=== PATIENT | male | born 2000 | race American Indian/Alaskan Native ===

== ENCOUNTER 2022-11-23 14:33 | Emergency (ER) | payer MEDICAID ==
[2022-11-23 15:32] LABS: APPEARANCE,URINE SLIGHTLY CLOUDY (CLEAR); BILIRUBIN,URINE SMALL (NEGATIVE); COLOR,URINE YELLOW (YELLOW); GLUCOSE,URINE NEGATIVE (NEGATIVE); KETONES,URINE 40 mg/dL (NEGATIVE); LEUKOCYTE ESTERASE,URINE SMALL (NEGATIVE); NITRITE,URINE NEGATIVE (NEGATIVE); OCCULT BLOOD,URINE TRACE-INTACT (NEGATIVE); PH,URINE 6.5 (5.0-8.0); PROTEIN,URINE 30 mg/dL (NEGATIVE)
[2022-11-23 15:37] LABS: RBC,URINE 0-5 (0-5); WBC,URINE PACKED (0-5)
[2022-11-23 15:38] LABS: AMORPHOUS SEDIMENT,URINE NOT SEEN; BACTERIA,URINE MODERATE; EPITHELIAL CELLS,URINE RARE; MUCUS,URINE PACKED
[2022-11-26 16:17] LABS: CHLAMYDIA TRACHOMATIS, NAA Positive (Negative); NEISSERIA GONORRHOEAE, NAA Positive (Negative)
[2022-11-26 18:18] LABS: T PALLIDUM ANTIBODIES Non Reactive (Non Reactive)
== END 2022-11-23 16:01 | disposition home or self-care (01) ==
LOC: JP.ED 14:33
DX: A64 Unspecified sexually transmitted disease (principal); F17.210 Nicotine dependence, cigarettes, uncomplicated
CPT/HCPCS: 36415; 81001; 86780; 87449; 87491; 87591; 99283

== ENCOUNTER 2022-11-27 19:31 | Emergency (ER) | payer MEDICAID | END 2022-11-27 20:10 | disposition left against medical advice (07) | LOC: JP.ED 19:31 | DX: Z53.21 Procedure and treatment not carried out due to patient leaving prior to being seen by health care provider (principal) ==

== ENCOUNTER 2024-08-04 12:23 | Emergency (ER) | payer MEDICAID ==
[2024-08-04 13:20] LABS: APPEARANCE,URINE CLEAR (CLEAR); BILIRUBIN,URINE NEGATIVE (NEGATIVE); COLOR,URINE YELLOW (YELLOW); GLUCOSE,URINE NEGATIVE (NEGATIVE); KETONES,URINE NEGATIVE (NEGATIVE); LEUKOCYTE ESTERASE,URINE NEGATIVE (NEGATIVE); NITRITE,URINE NEGATIVE (NEGATIVE); OCCULT BLOOD,URINE NEGATIVE (NEGATIVE); PROTEIN,URINE NEGATIVE (NEGATIVE); UROBILINOGEN,URINE 0.2 EU/dL (0.2-1.0)
[2024-08-04 13:49] LABS: AMORPHOUS SEDIMENT,URINE NOT SEEN; BACTERIA,URINE NOT SEEN; EPITHELIAL CELLS,URINE NOT SEEN; MUCUS,URINE NOT SEEN; RBC,URINE 0-5 (0-5); WBC,URINE NOT SEEN (0-5)
[2024-08-04] MEDS: Azithromycin 250 MG Tab PO ONE (14:25)
[2024-08-04] MEDS: cefTRIAXone 500 MG Vial IM ONE (14:28)
[2024-08-04] MEDS: Lidocaine 1% 5 ML VIAL INJECT ONE (14:28)
[2024-08-04] MEDS: Lidocaine 1% 5 ML VIAL ONE (14:28)
[2024-08-04] MEDS: Lidocaine 1% 50 ML MDV INJECT ONE (14:28)
[2024-08-07 16:00] LABS: APTIMA MEDIA TYPE Urine; C. TRACHOMATIS BY TMA Positive (Negative); N. GONORRHOEAE BY TMA Negative (Negative); SPECIMEN SOURCE Urine
== END 2024-08-04 14:52 | disposition home or self-care (01) ==
LOC: JP.ED 12:23
DX: A64 Unspecified sexually transmitted disease (principal)
CPT/HCPCS: 81001; 87491; 87591; 96372; 99283; A9270-GY; J0696; J2003